=== PATIENT | male | born 1980 | race Caucasian/White ===

== ENCOUNTER 2019-11-14 14:39 | Outpatient (CLI) | payer OTHER ==
--- NOTE | 2019-11-14 15:25 | RAD ---
Exam:2 views right hip HISTORY: Disability. COMPARISON: None FINDINGS: There is no collapse of the humeral head suggesting possible avascular necrosis. There is s evere loss of joint space height with sclerosis and subchondral cyst formation involving the acetabulum as well as the femoral head. Orthopedic consultation is recommended. IMPRESSION: Orthopedic consultation is recommended for collapse of the femoral head along with severe degenerative change. Possible avascular necrosis cannot be excluded. Results study discussed with Dr. Stacy 11/14/2019 at 3:23 PM Code CR
--- NOTE | 2019-11-14 15:30 | RAD ---
Lumbar spine 3 views HISTORY: Back pain. FINDINGS: There are 5 lumbar type vertebrae. Pedicles are intact. Mild to moderate rightward convex r otatory scoliotic curvature. Vertebral body heights and AP alignment are maintained, allowing for minimal physiologic wedging at T 12. Mild disc space narrowing and mild to moderate endplate sclerosis throughout the lower thoracic and lumbar spine. Gas disc phenomenon apparent at the L1-2, L2-3, and L5-S1 levels. No acute fracture or dislocation are apparent. Severe arthritic changes of the right hip and collapse of the right femoral head partially visualized, better detailed on dedicated hip exam. 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
== END 2019-11-14 14:40 | disposition home or self-care (01) ==
LOC: RAD 14:39
PROVIDERS: ATTEND Internal Medicine
DX: Z02.71 Encounter for disability determination (principal); M47.816 Spondylosis without myelopathy or radiculopathy, lumbar region; M16.11 Unilateral primary osteoarthritis, right hip
CPT/HCPCS: 72100